=== PATIENT | female | born 1960 | race Two or more races ===

== ENCOUNTER 2017-09-04 19:58 | Emergency (ER) | payer SELFPAY ==
[~2017-09-04] VITALS: Ht 154.9 cm; Wt 49.9 kg
[2017-09-04 20:15] VITALS: BP 93/72
== END 2017-09-04 20:48 | disposition left against medical advice (07) ==
LOC: ER 19:58
DX: R20.0 Anesthesia of skin (principal); J45.909 Unspecified asthma, uncomplicated; Z53.29 Procedure and treatment not carried out because of patient's decision for other reasons